=== PATIENT | female | born 1990 ===

== ENCOUNTER 2021-12-20 21:03 | Observation (INO) | payer BC ==
[2021-12-20] MEDS ORDERED: Sodium Chloride 0.9% 10 ML Syringe FLUSH PRN (21:32)
[2021-12-20] MEDS ORDERED: Docusate Sodium 100 MG Cap PO PRN (21:32)
[2021-12-20] MEDS ORDERED: Sodium Chloride 0.9% 2.5 ML Syringe FLUSH PRN (21:32)
[2021-12-20] MEDS ORDERED: Sodium Chloride 0.9% 20 ML SDV IV PRN (21:32)
[2021-12-20] MEDS ORDERED: Lactated Ringers 1,000 ML IV SCH (22:45)
[2021-12-20] MEDS: Lactated Ringers 1,000 ML IV SCH ×2 (23:05)
== END 2021-12-22 11:35 | disposition home or self-care (01) ==
LOC: MW.OB 21:03 → MW.OBCHECK 21:03 → MW.OB 21:27
PROVIDERS: ADMIT Obstetrics & Gynecology; ATTEND Obstetrics & Gynecology
DX: O44.42 Low lying placenta NOS or without hemorrhage, second trimester (principal); Z3A.22 22 weeks gestation of pregnancy; Z20.822 Contact with and (suspected) exposure to COVID-19
CPT/HCPCS: 36410; 36415; 76805; 76805-26; 76817; 85027; 86850; 86900; 86901; G0378; J7120; U0002

== ENCOUNTER 2022-03-22 17:36 | Inpatient (IN) | payer BC ==
[2022-03-22] MEDS ORDERED: Ondansetron 4 MG/2 ML SDV IVPUSH PRN (18:13)
[2022-03-22] MEDS ORDERED: Methylergonovine 0.2 MG/1 ML Amp IM PRN (18:13)
[2022-03-22] MEDS ORDERED: Water For Irrigation,Sterile 1,000 ML Container IRR PRN (18:13)
[2022-03-22] MEDS ORDERED: Misoprostol 200 MCG Tab PO PRN (18:13)
[2022-03-22] MEDS ORDERED: Sodium Chloride 0.9% 10 ML Syringe FLUSH PRN (18:13)
[2022-03-22] MEDS ORDERED: Sodium Chloride 0.9% 20 ML SDV IV PRN (18:13)
[2022-03-22] MEDS ORDERED: Sodium Chloride 0.9% 2.5 ML Syringe FLUSH PRN (18:13)
[2022-03-22] MEDS ORDERED: Lidocaine 1% 50 ML MDV INJECT PRN (18:13)
[2022-03-22] MEDS ORDERED: Carboprost Tromethamine 250 MCG/1 ML Amp IM PRN (18:13)
[2022-03-22] MEDS ORDERED: Tranexamic Acid 1,000 MG in Sodium Chloride 0.9% 100 ML IV PRN (18:13)
[2022-03-22] MEDS ORDERED: Butorphanol 1 MG/ML SDV IVPUSH PRN (18:13)
[2022-03-22] MEDS ORDERED: Betamethasone Acetate/Betamethasone Sod Phosphate 30 MG/5 ML MDV IM SCH (18:15)
[2022-03-22] MEDS ORDERED: Oxytocin/0.9 % Sodium Chloride 30 UNIT/500 ML BAG IV SCH (18:15)
[2022-03-22] MEDS ORDERED: ceFAZolin 1 GM in Premix Bag 1 BAG IV SCH (18:30)
[2022-03-22] MEDS: Lactated Ringers 1,000 ML IV SCH ×2 (19:00→21:34)
[2022-03-22] MEDS ORDERED: ceFAZolin 2 GM in Sodium Chloride 0.9% 50 ML IV ONE (19:43)
[2022-03-22] MEDS ORDERED: Bupivacaine 0.5% 10 ML SDV ONE (21:00)
[2022-03-22] MEDS ORDERED: Ropivacaine/PF 400 MG/200 ML PCA ONE (21:00)
[2022-03-22] MEDS ORDERED: ePHEDrine 50 MG/ML SDV IVPUSH PRN ×2 (21:26)
[2022-03-22] MEDS ORDERED: Phenylephrine HCl In 0.9% NaCl 1 MG/10 ML Vial IVPUSH PRN (21:26)
[2022-03-22] MEDS ORDERED: Ropivacaine HCl/PF 400 MG in Premix Bag 1 BAG EPIDUR SCH (21:30)
[2022-03-22] MEDS: Phenylephrine HCl In 0.9% NaCl 1 MG/10 ML Vial IVPUSH SCH ×2 (21:51→21:56)
[2022-03-23] MEDS ORDERED: Terbutaline 1 MG/ML SDV SUBCUT PRN (02:43)
[2022-03-23] MEDS ORDERED: Oxytocin/0.9 % Sodium Chloride 30 UNIT/500 ML BAG IV SCH (02:45)
[2022-03-23] MEDS: Lactated Ringers 1,000 ML IV SCH (02:46)
[2022-03-23] MEDS ORDERED: ceFAZolin 1 GM in Premix Bag 1 BAG IV SCH (04:00)
[2022-03-23] MEDS ORDERED: Bisacodyl 10 MG Supp RECTAL PRN (04:27)
[2022-03-23] MEDS ORDERED: Witch Hazel Medicated Pads 40/Jar TOP PRN (04:27)
[2022-03-23] MEDS ORDERED: Benzocaine/Menthol 20%-0.5% Spray 78 GM Cannister TOP PRN (04:27)
[2022-03-23] MEDS ORDERED: Acetaminophen 500 MG Tab PO PRN ×2 (04:27)
[2022-03-23] MEDS ORDERED: Lanolin 100% Cream 7 GM Tube TOP PRN (04:27)
[2022-03-23] MEDS ORDERED: Ibuprofen 400 MG Tab PO PRN (04:27)
[2022-03-23] MEDS ORDERED: oxyCODONE 5 MG Tab PO PRN (04:27)
[2022-03-23] MEDS: Ibuprofen 800 MG Tab PO PRN (10:20)
[2022-03-24] MEDS: Ibuprofen 800 MG Tab PO PRN ×2 (15:06→22:47)
[2022-03-24] MEDS: Docusate Sodium 100 MG Cap PO PRN (19:45)
[2022-03-25] MEDS: Docusate Sodium 100 MG Cap PO PRN (09:02)
== END 2022-03-25 13:50 | disposition home or self-care (01) | DRG 560 ==
LOC: MW.OBCHECK 17:36 → MW.OB 17:42 → MW.OBCHECK 18:15 → MW.OB 19:47 → OBSVTOIN 03-23 03:50 → MW.OB 03-23 15:31
PROVIDERS: ADMIT Obstetrics & Gynecology; ATTEND Obstetrics & Gynecology
PROC: 10E0XZZ Delivery of Products of Conception, External Approach (ICD-10-PCS; principal; 2022-03-23)
PROC: 3E0R3BZ Introduction of Anesthetic Agent into Spinal Canal, Percutaneous Approach (ICD-10-PCS; 2022-03-23)
PROC: 00HU33Z Insertion of Infusion Device into Spinal Canal, Percutaneous Approach (ICD-10-PCS; 2022-03-23)
DX: O60.14X0 Preterm labor third trimester with preterm delivery third trimester, not applicable or unspecified (principal); Z37.0 Single live birth; Z3A.35 35 weeks gestation of pregnancy; Z20.822 Contact with and (suspected) exposure to COVID-19
CPT/HCPCS: 36415; 51702; 59025; 59409; 82803; 85014; 85018; 85027; 86592; 86850; 86900; 86901; A9270-GY; J0690; J0702; J2590; J2795; J3490; J7120; U0002